=== PATIENT | male | born 1985 ===

== ENCOUNTER 2021-03-01 18:44 | Emergency (ER) | payer MEDICAID ==
[~2021-03-01] VITALS: Ht 193 cm; Wt 75.6 kg
[2021-03-01 18:57] VITALS: BP 141/73
== END 2021-03-01 19:32 | disposition home or self-care (01) ==
LOC: ED 19:00
DX: T16.1XXA Foreign body in right ear, initial encounter (principal); T16.2XXA Foreign body in left ear, initial encounter; Z72.9 Problem related to lifestyle, unspecified; F17.210 Nicotine dependence, cigarettes, uncomplicated; X58.XXXA Exposure to other specified factors, initial encounter; Y93.89 Activity, other specified; Y92.89 Other specified places as the place of occurrence of the external cause; Y99.8 Other external cause status
CPT/HCPCS: 99281; 99406

== ENCOUNTER 2021-05-12 15:34 | Emergency (ER) | payer MEDICAID ==
[~2021-05-12] VITALS: Ht 193 cm; Wt 69.0 kg
[2021-05-12 17:59] VITALS: BP 133/80
--- NOTE | 2021-05-12 19:38 | NUR ---
PT CALLED BY PA. CURTIS X 1
--- NOTE | 2021-05-12 21:00 | NUR ---
NA X 2
--- NOTE | 2021-05-12 21:27 | NUR ---
NA X 3
== END 2021-05-12 21:29 | disposition left against medical advice (07) ==
LOC: ED 21:23
DX: H92.03 Otalgia, bilateral (principal)
CPT/HCPCS: 99281

== ENCOUNTER 2021-05-13 06:55 | Emergency (ER) | payer MEDICAID ==
[~2021-05-13] VITALS: Ht 193 cm; Wt 69.3 kg
== END 2021-05-13 07:06 | disposition left against medical advice (07) ==
LOC: ED 07:00
DX: F22 Delusional disorders (principal); F17.200 Nicotine dependence, unspecified, uncomplicated
CPT/HCPCS: 99281